=== PATIENT | female | born 1970 | race Caucasian/White ===

== ENCOUNTER 2018-09-07 15:53 | Emergency (ER) | payer BC ==
--- OUTSIDE RECORDS SUMMARY | 2018-09-07 16:01 | XMS REPORT | Continuity of Care Document ---
:1970 External Reference #:[id number] Author Name Sabi Soni Care Team Providers Name Role Phone Kyra Franco MD Primary Care Physician Unavailable Payers Date Identification Numbers Payment Provider Subscriber Policy Number: [id number] [employer] Zeina Marques PayID: [id number] [address] [address] [place] [address] Effective: 2009 Policy Number: [id number] BS Of SHALONDA Marques Expires: 2017 Group Name: [employer] [address] [address] PayID: [id number] [place] [address] Advance Directives Description No Information Available Problems Date Description Provider Status Onset: 07/23/2015 Anxiety Darlene Pettit N.P. Active Family History Date Family Member(s) Observation Comments Father Pe - Related to injury Back Pain with related urinary incontinence Age 65 Mother Obesity Mother Diabetes Mother Atrial Fibrillation Mother Hypertension Age 65 Children 3 1 Son - Depression, Anxiety, ADHD Age 24 1 Daughter - Anxiety Age 22 1 Son - Anxiety, high function autism Age 13 Siblings 2 1 Brother - Healthy Age 40 1 Sister - Bariatric surgery for obesity, Syncope possibly related to seizures, Prior had IFG, ? cardiac issues? 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 as needed for back pain Paroxetine HCL 04/19/20 Active Tablets 20mg 30tab 1 By F41.1 Darlene 18 s Mouth Varn, Every Day N.P. Vitamin C 03/14/20 Active Capsules 500mg 90cap 1 by Darlene 18 s mouth Varn, every day N.P. Magnesium 03/14/20 Active Capsules 500mg twice Darlene 18 daily Varn, N.P. Zyrtec D Allergy 09/25/19 Active Capsules 10mg 30cap take one Darlene 18 s tablet by Varn, mouth in N.P. the evening Alprazolam 09/23/19 Active Tablets 0.25mg 30tab one by F41.1 Darlene 17 s mouth up Varn, to three N.P. times daily as needed for anxiety Imitrex 06/29/19 Active Solution 20mg/Act 6unit 1 R51 Darlene 17 s inhalatio Varn, n in 1 N.P. nostirl, may repeat in 2 hours if needed, as needed miraine headaches . Zofran 07/23/19 Active Tablets 4mg 20tab take 1 R51 Darlene 16 s tablet by Varn, mouth N.P. every 8 hours as needed for nausea Pain Relief Active Tablets 500mg 2 tabs 3 Unknown Extra Strength 00 times daily prn Qnasl Active Aerosol 80mcg/Act Unknown 00 Levocetirizine Active Tablets 5mg Bernardo, Dihydrochloride 00 Geovanny zurita MD Sudafed Active Tablets 30mg Unknown 00 Amoxicillin/Clav 07/13/19 Hx Tablets 875-125mg 20tab 1 by J01.90 Ruthann baker 19 - s mouth MD Blake Potassium 08/12/19 twice a 19 day Amoxicillin/Clav 03/14/20 Hx Tablets 875-125mg 20tab one J01.90 Darlene ulanate 18 - s tablet by Fabi Pettit 03/24/20 mouth N.P. 18 twice daily for 10 days Sertraline HCL 02/19/20 Hx Tablets 100mg 90tab 1 by F41.9 Darlene 18 - s mouth Varn, 04/19/20 every day N.P. 18 Escitalopram 01/08/20 Hx Tablets 20mg 30tab 1 By F32.9 Darlene Oxalate 18 - s Mouth Varn, 02/19/20 Every Day N.P. 18 Amoxicillin/Clav 06/18/20 Hx Tablets 875-125mg 20tab take one J01.90 Marek ulanate 17 - s tablet ANNALISE Cheatham Potassium 06/29/19 q12 hours 18 for 10 days Compazine 06/29/19 Hx Suppositor 25mg 20uni 1 R51 Darlene 17 - y ts supposito Varn, 07/29/19 ry N.P. 17 rectally twice a day as needed Medrol 06/18/20 Hx TBPK 4mg 21uni 6 by Darlene 16 - ts mouth day Varn, 06/24/19 1, 5 by N.P. 17 mouth day 2, 4 by mouth day 3, 3 by mouth day 4, 2 by mouth day 5, 1 by mouth day 6 Augmentin 06/17/20 Hx Tablets 875-125mg 20tab one by J01.90 Darlene 16 - s mouth Varn, 06/27/19 every 12 N.P. 17 hours for ten days Levaquin 05/29/20 Hx Tablets 500mg 10tab 1 by J01.90 Marek 16 - s mouth ANNALISE Cheatham 06/08/20 every day 16 Nasonex 05/29/20 Hx Suspension 50mcg/Act 17gm two Carmen01.90 Marek 16 - sprays ANNALISE Cheatham 06/18/20 each 17 nostril once daily for 2 weeks. Augmentin 01/24/20 Hx Tablets 875-125mg 20tab 1 tablet Marek 16 - s by mouth ANNALISE Cheatham 02/03/20 q12 hours 16 for 10 days Benzonatate 01/22/20 Hx Capsules 100mg 30cap take one J06.9 Marek 16 - s or two ANNALISE Cheatham 01/29/20 capsules 16 every 8 hours as needed for cough. Alprazolam 01/07/20 Hx Tablets 0.25mg 14tab one by F32.9 Darlene 16 - s mouth up Varn, 06/29/19 to three N.P. 17 times daily as needed for anxiety Escitalopram 01/07/20 Hx Tablets 10mg 30tab 1 By F32.9 Darlene Oxalate 16 - s Mouth Varn, 01/08/20 Every Day N.P. 18 Augmentin 10/17/19 Hx Tablets 875-125mg 20tab one by J01.00 Darlene 16 - s mouth Varn, 10/27/19 every 12 N.P. 16 hours for ten days Fluticasone 10/17/19 Hx Suspension 50mcg/Act 16uni 2 sprays J01.00 Darlene Propionate 16 - ts each Varn, 10/31/19 nostril N.P. 16 daily as needed Naratriptan HCL Hx Tablets 2.5mg 14tab as needed Darlene 00 - s headache Varn, 06/29/19 max 2 N.P. 17 days a week Vitamin B 12 Hx Capsule 2 by Unknown 00 - mouth Unknown every day Vitamin D3 Hx Capsules 2000Unit 1 by Unknown 00 - mouth Unknown every day Multi Vit W/B Hx Unknown Complex - 04/19/20 18 Zyrtec-D Allergy Hx Tablets ER 5-120mg 1 by Unknown & Congestion 00 - 12HR mouth 09/25/19 twice a 18 day Prednisone Hx Tablets 10mg TK 3 TS Unknown 00 - PO bid WF 08/12/19 For 5 19 Days Medications Administered in Office Medication Date Status Form Strength Qnty SIG Indications Ordering Provider Celestone 3 mg Administered Injection Elian and 3mg Sona Brennan MD Immunizations CPT Code Status Date Vaccine Lot # [id number] Given 07/23/2015 Tdap - Tetanus/Diptheria/Acellular Pertussis [id number] Vital Signs Date Vital Result Comment 09/02/2018 2:07pm Height 64 inches 5'4" Weight 146.44 lb Heart Rate 70 /min BP Systolic 110 mmHg BP Diastolic 70 mmHg O2 % BldC Oximetry 96 % BMI (Body Mass Index) 25.1 kg/m2 08/12/2018 10:04am Height 64 inches 5'4" Weight 147.00 lb Heart Rate 65 /min BP Systolic 110 mmHg BP Diastolic 69 mmHg Body Temperature 97.9 F O2 % BldC Oximetry 99 % BMI (Body Mass Index) 25.2 kg/m2 07/22/2018 10:12am Height 64 inches 5'4" Weight 147.00 lb Heart Rate 58 /min BP Systolic 129 mmHg BP Diastolic 78 mmHg Body Temperature 98.6 F O2 % BldC Oximetry 97 % BMI (Body Mass Index) 25.2 kg/m2 07/13/2018 11:04am Height 64 inches 5'4" Weight 147.00 lb Heart Rate 71 /min BP Systolic Sitting 115 mmHg BP Diastolic Sitting 71 mmHg Body Temperature 97.1 F O2 % BldC Oximetry 100 % BMI (Body Mass Index) 25.2 kg/m2 07/06/2018 10:09am Height 64 inches 5'4" Weight 138.00 lb Heart Rate 55 /min BP Systolic 113 mmHg BP Diastolic 72 mmHg Body Temperature 98.2 F O2 % BldC Oximetry 98 % BMI (Body Mass Index) 23.7 kg/m2 06/15/2018 11:08am Height 64 inches 5'4" Weight 144.00 lb Heart Rate 67 /min BP Systolic 122 mmHg BP Diastolic 83 mmHg Body Temperature 97.0 F O2 % BldC Oximetry 98 % BMI (Body Mass Index) 24.7 kg/m2 05/25/2018 10:16am Height 64 inches 5'4" Weight 147.00 lb Heart Rate 58 /min BP Systolic 129 mmHg BP Diastolic 81 mmHg Body Temperature 97.9 F O2 % BldC Oximetry 100 % BMI (Body Mass Index) 25.2 kg/m2 05/04/2018 11:14am Height 64 inches 5'4" Weight 149.00 lb Heart Rate 66 /min BP Systolic 129 mmHg BP Diastolic 81 mmHg Body Temperature 98.0 F O2 % BldC Oximetry 96 % BMI (Body Mass Index) 25.6 kg/m2 04/19/2018 10:33am Height 64 inches 5'4" Weight 154.00 lb Heart Rate 64 /min BP Systolic 127 mmHg BP Diastolic 86 mmHg Body Temperature 98.3 F O2 % BldC Oximetry 100 % BMI (Body Mass Index) 26.4 kg/m2 03/28/2018 10:22am Height 64 inches 5'4" Weight 157.00 lb Heart Rate 69 /min BP Systolic 115 mmHg BP Diastolic 72 mmHg Body Temperature 97.9 F O2 % BldC Oximetry 100 % BMI (Body Mass Index) 26.9 kg/m2 03/14/2018 11:37am Height 64 inches 5'4" Weight 153.00 lb Heart Rate 108 /min BP Systolic 130 mmHg BP Diastolic 72 mmHg Body Temperature 98.9 F O2 % BldC Oximetry 96 % BMI (Body Mass Index) 26.3 kg/m2 02/18/2018 11:47am Height 64 inches 5'4" Weight 163.00 lb Heart Rate 65 /min BP Systolic 110 mmHg BP Diastolic 78 mmHg Body Temperature 98.3 F O2 % BldC Oximetry 97 % BMI (Body Mass Index) 28.0 kg/m2 01/07/2018 11:25am Height 64 inches 5'4" Weight 158.00 lb Heart Rate 65 /min BP Systolic 118 mmHg BP Diastolic 80 mmHg Body Temperature 97.4 F O2 % BldC Oximetry 98 % BMI (Body Mass Index) 27.1 kg/m2 11/12/2017 2:17pm Height 64 inches 5'4" Weight 162.00 lb Heart Rate 73 /min Respiratory Rate 14 /min Body Temperature 98.6 F Pain Level 6 BMI (Body Mass Index) 27.8 kg/m2 10/05/2017 1:26pm Height 64 inches 5'4" Weight 162.00 lb Heart Rate 60 /min BP Systolic 122 mmHg BP Diastolic 68 mmHg Respiratory Rate 16 /min Body Temperature 97.1 F Pain Level 7 intermittent BMI (Body Mass Index) 27.8 kg/m2 09/24/2017 10:47am Height 64.25 inches 5'4.25" Weight 165.00 lb Heart Rate 61 /min BP Systolic 114 mmHg BP Diastolic 70 mmHg Body Temperature 98.0 F O2 % BldC Oximetry 98 % BMI (Body Mass Index) 28.1 kg/m2 06/18/2017 11:07am Weight 159.50 lb Heart Rate 70 /min BP Systolic Sitting 118 mmHg BP Diastolic Sitting 80 mmHg Body Temperature 97.9 F O2 % BldC Oximetry 98 % 09/22/2016 1:09pm Height 63.75 inches 5'3.75" Weight 171.25 lb Heart Rate 49 /min Body Temperature 98.3 F Pain Level 5 small migraine and possible UTI O2 % BldC Oximetry 98 % BMI (Body Mass Index) 29.6 kg/m2 06/29/2016 4:19pm Height 64.25 inches 5'4.25" Weight 170.00 lb Heart Rate 56 /min BP Systolic 110 mmHg BP Diastolic 70 mmHg Body Temperature 98.7 F O2 % BldC Oximetry 98 % BMI (Body Mass Index) 29.0 kg/m2 06/17/2016 4:13pm Height 64.25 inches 5'4.25" Weight 173.00 lb Heart Rate 77 /min BP Systolic 100 mmHg BP Diastolic 72 mmHg Body Temperature 99.0 F O2 % BldC Oximetry 98 % BMI (Body Mass Index) 29.5 kg/m2 05/29/2016 10:00am Height 64.25 inches 5'4.25" Weight 174.00 lb Heart Rate 60 /min BP Systolic 120 mmHg BP Diastolic 74 mmHg Body Temperature 98.6 F O2 % BldC Oximetry 98 % BMI (Body Mass Index) 29.6 kg/m2 02/14/2016 3:58pm Weight 174.00 lb Heart Rate 56 /min BP Systolic Sitting 119 mmHg BP Diastolic Sitting 70 mmHg O2 % BldC Oximetry 98 % 01/22/2016 1:59pm Weight 171.75 lb Heart Rate 58 /min BP Systolic Sitting 112 mmHg BP Diastolic Sitting 76 mmHg Body Temperature 97.9 F O2 % BldC Oximetry 98 % 01/07/2016 4:13pm Height 64.25 inches 5'4.25" Weight 175.50 lb Heart Rate 63 /min BP Systolic 117 mmHg BP Diastolic 77 mmHg Body Temperature 99.1 F O2 % BldC Oximetry 98 % BMI (Body Mass Index) 29.9 kg/m2 10/17/2015 11:43am Height 64.25 inches 5'4.25" Weight 176.00 lb Heart Rate 88 /min BP Systolic Sitting 124 mmHg BP Diastolic Sitting 80 mmHg Respiratory Rate 15 /min Body Temperature 98.5 F O2 % BldC Oximetry 98 % BMI (Body Mass Index) 30.0 kg/m2 07/23/2015 10:24am Height 64.25 inches 5'4.25" Weight 177.00 lb Heart Rate 74 /min BP Systolic Sitting 126 mmHg BP Diastolic Sitting 84 mmHg Respiratory Rate 15 /min Body Temperature 98.0 F O2 % BldC Oximetry 98 % BMI (Body Mass Index) 30.1 kg/m2 Results Test Date Facility Test Result H/L Range Note Hepatitis Acute 11/07/201 [facility] Hepatitis A AB Nonreactive Nonreactive Panel [address] [place] [address] [phone] Hepatitis B Core AB Ig[place] Nonreactive Nonreactive Hepatitis B Surface Ag Nonreactive Nonreactive Hepatitis C Antibody 04/27/2018 [facility] HCV Index < 0.[address] [place] [address] [phone] Hepatitis C Antibody Nonreactive Nonreactive Lipid Profile 09/23/2017 [facility] Triglycerides 46 mg/dL 1 (Trig/Chol/HDL) [address] [place] [address] [phone] Cholesterol 186 mg/dL 2 HDL Cholesterol 67.8 mg/dL 3 LDL Cholesterol 109 mg/dL 4 Comp Metabolic Panel 09/23/2017 [facility] Sodium 139 mmol/L N 139-[address] [place] [address] [phone] Potassium 4.6 mmol/L N 3.5-5.0 Chloride 106 mmol/L N 101-111 Co2 Carbon Dioxide 29 mmol/L N 22-32 Anion Gap 4 mmol/L N 2-11 Glucose 90 mg/dL N 70-100 Blood Urea Nitrogen 24 mg/dL N 6-24 Creatinine 0.77 mg/dL N 0.51-0.95 BUN/Creatinine Ratio 31.2 High 8-20 Calcium 9.2 mg/dL N 8.6-10.3 Total Protein 6.1 g/dL Low 6.4-8.9 Albumin 4.0 g/dL N 3.2-5.2 Globulin 2.1 g/dL N 2-4 Albumin/Globulin Ratio 1.9 N 1-3 Total Bilirubin 1.20 mg/dL High 0.2-1.0 Alkaline Phosphatase 34 U/L N 34-104 Alt 15 U/L N 7-52 Ast 19 U/L N 13-39 Egfr Non- 80.4 >60 Egfr 103.3 >60 5 Lipid Profile 09/22/2016 [facility] Triglycerides 60 mg/dL N 6 (Trig/Chol/HDL) [address] [place] [address] [phone] Cholesterol 200 mg/dL N 7 HDL Cholesterol 58.0 mg/dL N 8 LDL Cholesterol 130 mg/dL N 9 Comp Metabolic Panel 09/22/2016 [facility] Sodium 137 mmol/L N 133-[address] [place] [address] [phone] Potassium 4.0 mmol/L N 3.5-5.0 Chloride 105 mmol/L N 101-111 Co2 Carbon Dioxide 27 mmol/L N 22-32 Anion Gap 5 mmol/L N 2-11 Glucose 84 mg/dL N 70-100 Blood Urea Nitrogen 21 mg/dL N 6-24 Creatinine 0.72 mg/dL N 0.51-0.95 BUN/Creatinine Ratio 29.2 High 8-20 Calcium 9.0 mg/dL N 8.6-10.3 Total Protein 6.4 g/dL N 6.4-8.9 Albumin 3.9 g/dL N 3.2-5.2 Globulin 2.5 g/dL N 2-4 Albumin/Globulin Ratio 1.6 N 1-3 Total Bilirubin 0.80 mg/dL N 0.2-1.0 Alkaline Phosphatase 26 U/L Low 34-104 Alt 11 U/L N 7-52 Ast 18 U/L N 13-39 Egfr Non- 87.2 N >60 Egfr 112.1 N >60 10 1 Desirable: <150 Borderline High: 150-199 High: 200-499 Very High: >500 2 Desirable: <200 Borderline High: 200-239 High: >239 3 Low: <40 Desirable: 40-60 High: >60 4 Desirable: <100 Near Optimal: 100-129 Borderline High: 130-159 High: 160-189 Very High: >189 5 Because ethnic data is not always readily available, this report includes an eGFR for both -Americans and non- Americans. The National Kidney Disease Education Program (NKDEP) does not endorse the use of the MDRD equation for patients that are not between the ages of 18 and 70, are , have extremes of body size, muscle mass, or nutritional status, or are non- or non-. According to the National Kidney Foundation, irrespective of diagnosis, the stage of the disease is based on the level of kidney function: Stage Description GFR(mL/min/1.73 m(2)) 1 Kidney damage with normal or decreased GFR 90 2 Kidney damage with mild decrease in GFR 60-89 3 Moderate decrease in GFR 30-59 4 Severe decrease in GFR 15-29 5 Kidney failure <15 (or dialysis) 6 Desirable <150 Borderline high 150-199 High 200-499 Very High >500 7 Desirable <200 Borderline high 200-239 High >239 8 Low <40 Desirable: 40-60 High: >60 9 Desirable: <100 mg/dL Near Optimal: 100-129 mg/dL Borderline High: 130-159 mg/dL High: 160-189 mg/dL Very High: >189 mg/dL 10 Because ethnic data is not always readily available, this report includes an eGFR for both -Americans and non- Americans. The National Kidney Disease Education Program (NKDEP) does not endorse the use of the MDRD equation for patients that are not between the ages of 18 and 70, are , have extremes of body size, muscle mass, or nutritional status, or are non- or non-. According to the National Kidney Foundation, irrespective of diagnosis, the stage of the disease is based on the level of kidney function: Stage Description GFR(mL/min/1.73 m(2)) 1 Kidney damage with normal or decreased GFR 90 2 Kidney damage with mild decrease in GFR 60-89 3 Moderate decrease in GFR 30-59 4 Severe decrease in GFR 15-29 5 Kidney failure <15 (or dialysis) Procedures Date Code Description Status 11/12/2017 Injection, Carpal Tunnel Completed 10/19/2017 78904931 Mammogram Completed 10/16/2016 [id number] Mammogram Completed 10/16/2015 [id number] Mammogram Completed 06/12/2009 60241 Screening Vision Test Completed 06/12/2009 49479 Pure Tone-Air Condition Only Completed 12/20/2008 90615 Screening Vision Test Completed 12/20/2008 74808 Pure Tone-Air Condition Only Completed Encounters Type Date Location Provider Dx Diagnosis Office Visit 08/12/2018 [facility] Darlene Pettit F41.1 Generalized anxiety 10:00a Medicine - N.P. disorder [facility] Office Visit 07/22/2018 [facility] Darlene Pettit F41.1 Generalized anxiety 10:20a Medicine - N.P. disorder [facility] Office Visit 07/13/2018 [facility] Ruthann Lozano MD J01.90 Acute sinusitis, 11:00a Medicine - unspecified [place] Office Visit 07/06/2018 [facility] Darlene Figueroabharath, F41.1 Generalized anxiety 10:00a Medicine - N.P. disorder [place] Office Visit 06/15/2018 [facility] Darlene Wilver, F41.1 Generalized anxiety 11:00a Medicine - N.P. disorder [place] Office Visit 05/25/2018 [facility] Darlene Wilver, F41.1 Generalized anxiety 10:20a Medicine - N.P. disorder [place] Office Visit 05/04/2018 [facility] Darlene Wilver, F41.1 Generalized anxiety 11:00a Medicine - N.P. disorder [place] Office Visit 04/19/2018 [facility] Darlene Wilver, F41.1 Generalized anxiety 10:40a Medicine - N.P. disorder [place] Office Visit 03/28/2018 [facility] Darlene Wilver, F41.1 Generalized anxiety 10:20a Medicine - N.P. disorder [place] Office Visit 03/14/2018 [facility] Darlene Wilver, F41.1 Generalized anxiety 11:40a Medicine - N.P. disorder [place] J01.90 Acute sinusitis, unspecified Office Visit 02/18/2018 11:40a [facility] Darlene Wilver, F41.9 Anxiety disorder, Medicine - N.P. unspecified [place] G47.00 Insomnia, unspecified Office Visit 01/07/2018 11:20a [facility] Darlene Wilver, F41.9 Anxiety disorder, Medicine - N.P. unspecified [place] Office Visit 11/12/2017 2:15p Orthopedic Elian G56.01 Carpal tunnel Services Of MD Anu syndrome, right C.M.A. upper limb G56.03 Carpal tunnel syndrome, bilateral upper limbs Office Visit 10/05/2017 1:15p Orthopedic Elian Brennan G56.03 Carpal tunnel Services Of syndrome, C.M.A. bilateral upper limbs Office Visit 09/24/2017 10:40a [facility] Darlene Petitt, Z00.00 Encntr for Medicine - N.P. 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 intractable, [place] without status migrainosus Office Visit 06/17/2016 4:00p [facility] Darlene Pettit, J01.90 Acute sinusitis, Medicine - N.P. unspecified [place] Office Visit 05/29/2016 10:00a [facility] Marek Cheatham NP J01.90 Acute sinusitis, Medicine - unspecified [place] Office Visit 02/14/2016 4:00p [facility] Darlene Pettit F33.9 Major depressive Medicine - N.P. disorder, [place] recurrent, unspecified Office Visit 01/22/2016 2:00p [facility] Marek Cheatham NP J06.9 Acute upper Medicine - respiratory [place] infection, unspecified Office Visit 01/07/2016 4:00p [facility] Darlene Pettit F33.9 Major depressive Medicine - N.P. disorder, [place] recurrent, unspecified Office Visit 10/17/2015 11:40a [facility] Darlene Pettit J01.00 Acute maxillary Medicine - N.P. sinusitis, [place] unspecified Office Visit 07/23/2015 10:40a [facility] Darlene Pettit Z00.00 Encntr for general Medicine - N.P. adult medical exam [place] w/o abnormal findings G43.909 Migraine, unsp, not intractable, without status migrainosus F41.1 Generalized anxiety disorder E78.0 Pure hypercholesterolemia K58.9 Irritable bowel syndrome without diarrhea Z23 Encounter for immunization Plan of Treatment Future Appointment(s):12/13/2018 11:00 am - Darlene Pettit N.P. at [facility] Internal Medicine - Ewkdzardp19/15/2019 - Darlene Pettit N.P.F41.1 Generalized anxiety disorderComments:For your anxiety:Continue your current management.G44.209 Tension-type headache, unspecified, not intractableNew Medication: Cyclobenzaprine HCL 5 mg - 1 by mouth at bedtime as needed for back painComments :For your muscle tension headaches I have prescribed a muscle relaxant for you, Cyclobenzaprine 5 mg.Take 1 tablet at bedtime. These are very sedating. If you do not find it helpful or you feel to fatigued during the day, please contact the office.Z12.31 Encounter for screening mammogram for malignant neoplasm ofComments:I have ordered your routine screening mammogram. The imaging department will give you your results at the time of your visit.
--- OUTSIDE RECORDS SUMMARY | 2018-09-07 16:02 | XMS REPORT | Continuity of Care Document ---
:1970 External Reference #:[id number] Author Name Jody Valenzuela Care Team Providers Name Role Phone Kyra Franco MD Primary Care Physician Unavailable Payers Date Identification Numbers Payment Provider Subscriber Policy Number: [id number] [employer] Zeina Mraques PayID: [id number] [address] [address] [place] [address] Effective: 2009 Policy Number: [id number] BS Of SHALONDA Marques Expires: 2017 Group Name: ALEKSANDER LIZ [address] [address] PayID: [id number] Advance Directives Description No Information Available Problems Date Description Provider Status Onset: 07/23/2015 Anxiety Darlene Pettit N.Flor. Active Family History Date Family Member(s) Observation [...] Patient has never smoked Smoking Status Reviewed: 08/12/18 Patient has never smoked Exercise Type/Frequency Exercises regularly 5 - 6 days weekly Walking 5 - 7 miles, Weight training Allergies, Adverse Reactions, Alerts Date Description Reaction Status Severity Comments 07/23/2015 Sulfa Antibiotics Active rash Medications Medication Date Status Form Strength Qnty SIG Indications Ordering Provider Paroxetine HCL 04/19/20 Active Tablets 20mg 30tab [...] Darlene ulanate 18 - s tablet by Wilver Potassium 03/24/20 mouth N.P. 18 twice daily for [...] Nasonex 05/29/20 Hx Suspension 50mcg/Act 17gm two J01.90 Marek 16 - sprays ANNALISE Cheatham 06/18/20 [...] 3 mg Administered Injection Elian and 3mg 018 MD Anu Immunizations CPT Code Status Date Vaccine Lot # [id number] Given 07/23/2015 Tdap - Tetanus/Diptheria/Acellular Pertussis [id number] Vital Signs Date Vital Result Comment 08/12/2018 10:04am Height 64 inches 5'4" Weight [...] Test Result H/L Range Note Hepatitis Acute [facility] Hepatitis A AB Nonreactive Nonreactive Panel [address] [address] [phone] Hepatitis B Core AB Igm Nonreactive Nonreactive Hepatitis B Surface Ag Nonreactive Nonreactive Hepatitis C Antibody 04/27/2018 [facility] HCV Index < 0.[address] [place] [address] [phone] Hepatitis C Antibody Nonreactive Nonreactive Lipid Profile 09/23/2017 [facility] Triglycerides 46 mg/dL 1 (Trig/Chol/HDL) [address] [place] [address] [phone] Cholesterol 186 mg/dL 2 HDL Cholesterol 67.8 mg/dL 3 LDL Cholesterol 109 mg/dL 4 Comp Metabolic Panel 09/23/2017 [facility] Sodium 139 mmol/L N 139-145 [address] [place] [address] [phone] Potassium 4.6 mmol/L N 3.5-5.0 Chloride 106 [...] Egfr 103.3 >60 5 Lipid Profile 09/22/2016 [facility] Triglycerides 60 mg/dL N 6 (Trig/Chol/HDL) [address] [place] [address] [phone] Cholesterol 200 mg/dL N 7 HDL Cholesterol 58.0 mg/dL N 8 LDL Cholesterol 130 mg/dL N 9 Comp Metabolic Panel 09/22/2016 [facility] Sodium 137 mmol/L N 133-145 [address] [place] [address] [phone] Potassium 4.0 mmol/L N 3.5-5.0 Chloride 105 [...] dialysis) Procedures Date Code Description Status 11/12/2017 43996 Injection, Carpal Tunnel Completed 10/19/2017 69818630 Mammogram Completed 10/16/2016 [id number] Mammogram Completed 10/16/2015 [id number] Mammogram Completed 06/12/2009 42301 Screening Vision Test Completed 06/12/2009 51551 Pure Tone-Air Condition Only Completed 12/20/2008 19891 Screening Vision Test Completed 12/20/2008 29895 Pure Tone-Air Condition Only Completed Encounters Type Date Location Provider Dx Diagnosis Office Visit 07/22/2018 [facility] Darlene Pettit F41.1 Generalized anxiety 10:20a Medicine - N.P. disorder [place] Office Visit 07/13/2018 [facility] Ruthann Lozano MD J01.90 Acute sinusitis, 11:00a Medicine - unspecified [place] Office Visit 07/06/2018 [facility] Darlene Pettit F41.1 Generalized anxiety 10:00a Medicine - N.P. disorder [place] Office Visit 06/15/2018 [facility] Timo Fenton1.1 Generalized anxiety 11:00a Medicine - N.P. disorder [place] Office Visit 05/25/2018 [facility] Darlene Pettit F41.1 Generalized anxiety 10:20a Medicine - N.P. disorder [place] Office Visit 05/04/2018 [facility] Timo Fenton1.1 Generalized anxiety 11:00a Medicine - N.P. disorder [place] Office Visit 04/19/2018 [facility] Darlene Pettit, F41.1 Generalized anxiety 10:40a Medicine - N.P. disorder [place] Office Visit 03/28/2018 [facility] Darlene Wilver, F41.1 Generalized anxiety 10:20a Medicine - N.P. disorder [place] Office Visit 03/14/2018 [facility] Darlene Pettit, F41.1 Generalized anxiety 11:40a Medicine - N.P. disorder [place] J01.90 Acute sinusitis, unspecified Office Visit 02/18/2018 11:40a [facility] Darlene Pettit, F41.9 Anxiety disorder, Medicine - N.P. unspecified [place] G47.00 Insomnia, unspecified Office Visit 01/07/2018 11:20a [facility] Darlene Pettit, F41.9 Anxiety disorder, Medicine - N.P. unspecified [place] Office Visit 11/12/2017 2:15p Orthopedic Elian G56.01 Carpal tunnel Services Of MD Anu syndrome, right C.M.A. upper limb G56.03 Carpal tunnel syndrome, bilateral upper limbs Office Visit 10/05/2017 1:15p Orthopedic Elian Brennan G56.03 Carpal tunnel Services Of syndrome, C.M.A. bilateral upper limbs Office Visit 09/24/2017 10:40a [facility] Darlene Pettit, Z00.00 Encntr for Medicine - N.P. general adult [place] medical exam w/o abnormal findings Z12.31 Encntr screen mammogram for malignant neoplasm of breast F33.9 Major depressive disorder, recurrent, unspecified K58.9 Irritable bowel syndrome without diarrhea J30.9 Allergic rhinitis, unspecified G43.909 Migraine, unsp, not intractable, without status migrainosus G56.03 Carpal tunnel syndrome, bilateral upper limbs N64.4 Mastodynia Office Visit 06/18/2017 10:40a [facility] Marek Cheatham J01.90 Acute sinusitis, Medicine - JACQUARD [employer]ER unspecified [place] M79.674 Pain in right toe(s) Office Visit 09/22/2016 1:20p [facility] Darlene Pettit, Z00.00 Encntr for Medicine - N.P. 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 intractable, [place] without status migrainosus Office Visit 06/17/2016 4:00p [facility] Darlene Pettit, J01.90 Acute sinusitis, Medicine - N.P. unspecified [place] Office Visit 05/29/2016 10:00a [facility] Marek Cheatham NP J01.90 Acute sinusitis, Medicine - unspecified [place] Office Visit 02/14/2016 4:00p [facility] Darlene Pettit F33.9 Major depressive Medicine - N.P. disorder, [place] recurrent, unspecified Office Visit 01/22/2016 2:00p [facility] Marek Cheatham NP J06.9 Acute upper Medicine - respiratory [place] infection, unspecified Office Visit 01/07/2016 4:00p [facility] Darlene Pettit F33.9 Major depressive Medicine - N.P. disorder, [place] recurrent, unspecified Office Visit 10/17/2015 11:40a [facility] Darlene Pettit, J01.00 Acute maxillary Medicine - N.P. sinusitis, [place] unspecified Office Visit 07/23/2015 10:40a [facility] Darlene Pettit, Z00.00 Encntr for general Medicine - N.P. adult medical exam [place] w/o abnormal findings G43.909 Migraine, unsp, not intractable, without status migrainosus F41.1 Generalized anxiety disorder E78.0 Pure hypercholesterolemia K58.9 Irritable bowel syndrome without diarrhea Z23 Encounter for immunization Plan of Treatment Future Appointment(s):09/02/2018 2:00 pm - Darlene Pettit N.P. at [facility] Medicine - Fpnougmej14/22/2019 - Darlene Pettit N.PRockF41.1 Generalized anxiety disorderComments:For your anxiety:Continue your current management. If at ay time you feel your symptoms are not wellcontrolled, please contact the office.Follow up:F/U 09/02
[2018-09-07 16:12] VITALS: BP 130/74
--- NOTE | 2018-09-07 16:43 | UC ---
Back Pain HPI - HPI Summary HPI Summary: Pt presents with c/o urinary frequency, urgency, and right side flank pain x 3 days. - History of Current Complaint Chief Complaint: UCBackPain Stated Complaint: RT SIDE BACK PAIN Time Seen by Provider: 09/07/18 16:11 Hx Obtained From: Patient Hx Last Menstrual Period: 3yrs ?: No Onset/Duration: Gradual Onset, Lasting Days - 3, Still Present Timing: Constant Severity Initially: Mild Severity Currently: Mild Pain Intensity: 5 Back Pain: Is Discrete @ Character: Dull, Aching Aggravating Factor(s): Movement, Lifting, Bending Alleviating Factor(s): Rest, Position Associated Signs And Symptoms: Positive: Negative Related History: Similar Episode Dx As - kidney stones - Risk Factors AAA Risk Factors: Negative TAD Risk Factors: Negative Cauda Equina Risk Factors: Negative Epidural Abscess Risk Factors: Negative - Allergies/Home Medications Allergies/Adverse Reactions: Allergies Allergy/AdvReac Type Severity Reaction Status Date / Time Sulfa (Sulfonamide Allergy Rash Verified 09/07/18 16:08 Antibiotics) Home Medications: Home Medications ALPRAZolam TAB* [Xanax TAB*] 1 tab TID PRN 09/07/18 [History Confirmed 09/07/18] PARoxetine HCL TAB* [Paxil TAB*] 1 tab DAILY 09/07/18 [History Confirmed ] PMH/Surg Hx/FS Hx/Imm Hx Previously Healthy: Yes Psychological History: Anxiety - Surgical History Surgical History: Yes Surgery Procedure, Year, and Place: PARTIAL HYSTERECTOMY 07/2012; hernia left inguinal 2002 - Family History Known Family History: Positive: Cardiac Disease - Social History Occupation: Employed Full-time Lives: With Family Alcohol Use: Occasionally Substance Use Type: None Smoking Status (MU): Never Smoked Tobacco Have You Smoked in the Last Year: No Review of Systems All Other Systems Reviewed And Are Negative: Yes Constitutional: Positive: Negative Skin: Positive: Negative Eyes: Positive: Negative ENT: Positive: Negative Respiratory: Positive: Negative Cardiovascular: Positive: Negative Gastrointestinal: Positive: Negative Genitourinary: Positive: Dysuria, Frequency, Urgency Motor: Positive: Negative Neurovascular: Positive: Negative Musculoskeletal: Positive: Negative Neurological: Positive: Negative Psychological: Positive: Negative Is Patient Immunocompromised?: No Physical Exam Triage Information Reviewed: Yes Appearance: Well-Appearing Vital Signs: Initial Vital Signs Temp 99 F 09/07/18 16:07 Pulse 63 09/07/18 16:07 Resp 16 09/07/18 16:07 BP 130/74 09/07/18 16:07 Pulse Ox 100 09/07/18 16:07 Vital Signs Reviewed: Yes Eye Exam: Normal ENT Exam: Normal Dental Exam: Normal Neck exam: Normal Respiratory Exam: Normal Cardiovascular Exam: Normal Abdomen Description: Positive: CVA Tenderness (R) Musculoskeletal Exam: Normal Neurological Exam: Normal Psychological Exam: Normal Skin Exam: Normal Back Pain Course/Dx - Differential Dx/Diagnosis Differential Diagnosis/HQI/PQRI: Strain, Other - uti, kidney stone Provider Diagnosis: Dysuria, Right flank pain Discharge - Sign-Out/Discharge Documenting (check all that apply): Patient Departure All imaging exams completed and their final reports reviewed: No Studies - Discharge Plan Condition: Stable Disposition: HOME Prescriptions: Nitrofurantoin Monohyd/M-Cryst [Macrobid 100 mg Capsule] 100 mg PO Q12H #14 cap Patient Education Materials: Dysuria (ED) Referrals: Darlene Pettit NP [Primary Care Provider] - If Needed - Billing Disposition and Condition Condition: STABLE Disposition: Home - Attestation Statements Provider Attestation: Per institutional requirements, I have reviewed the chart, however, I was not consulted specifically or made aware of this patient by the midlevel provider. I did not personally evaluate, interact with , or disposition this patient.
== END 2018-09-07 16:52 | disposition home or self-care (01) ==
LOC: UCCORT 15:53
DX: R30.0 Dysuria (principal); R10.9 Unspecified abdominal pain; R39.15 Urgency of urination; Z88.2 Allergy status to sulfonamides
CPT/HCPCS: 81003; 87077; 87086; 87186; 99212; G0463

== ENCOUNTER 2022-10-27 06:06 | Inpatient (IN) ==
[~2022-10-27 06:06] MED LIST: Buffered Lidocaine 1% SYRIN 1 ml INTRADERM ONE; Lactated Ringers 1000 ml BAG 1,000 ML IV SCH
[2022-10-27] MEDS ORDERED: Rocuronium 50 mg VIAL 10 mg/ml 5 ml VIAL (50 mg) ONE ×2 (06:14→08:04)
[2022-10-27] MEDS ORDERED: Ondansetron 4 mg VIAL 2 MG/ML 2 ml VIAL ONE ×2 (06:15→10:53)
[2022-10-27] MEDS ORDERED: fentaNYL 100 mcg/2 ml 50 MCG/ML VIAL ONE ×2 (06:15→10:30)
[2022-10-27] MEDS ORDERED: Propofol 10 MG/ML 20 ML BTL ONE (06:15)
[2022-10-27] MEDS ORDERED: Midazolam 2 mg/2 ml VIAL 1 mg/ml 2 ml VIAL (2 mg) ONE (06:15)
[2022-10-27] MEDS ORDERED: Dexamethasone IV 4 MG/ML VIAL 1 ml VIAL ONE (06:15)
[2022-10-27] MEDS ORDERED: Heparin 5000 UNITS/ML 1 mL VIAL ONE (06:22)
[2022-10-27] MEDS ORDERED: Scopolamine 1 mg/72hr PATCH ONE (06:22)
[2022-10-27] MEDS ORDERED: ceFAZolin 2 GM in NS PREMIX 0 GM/0 ML BAG IVPB ONE (06:23)
[2022-10-27] MEDS ORDERED: Clindamycin 900 MG/50 **NS BAG 900 MG/50 ML BAG ONE (06:25)
[2022-10-27 06:46] LABS: Rapid COVID-19 Molecular Undetected (Undetected)
[2022-10-27] MEDS ORDERED: Bupivacaine 0.25% EPI 200,000 30 ML SDV ONE (06:56)
[2022-10-27] MEDS ORDERED: Methylene Blue 0.5 % 50 MG/10 ML AMP IV ONE (06:56)
[2022-10-27] MEDS ORDERED: Acetaminophen IV 1 GM/100ML 1,000 MG/100 ML BAG IV ONE (07:50)
[2022-10-27] MEDS ORDERED: Ketamine HCL 50 mg/ml 10 ml VIAL (500 MG) ONE (07:58)
[2022-10-27] MEDS ORDERED: Ondansetron 4 mg VIAL 2 MG/ML 2 ml VIAL IV PRN (10:12)
[2022-10-27] MEDS ORDERED: HYDROmorphone 0.5 MG/0.5 ML SYRINGE IV SLOW PU PRN (10:12)
[2022-10-27] MEDS ORDERED: HYDROmorphone 1 MG/1 ML SYRINGE IV SLOW PU PRN (10:12)
[2022-10-27] MEDS ORDERED: Prochlorperazine 5 mg/ml 2 ml VIAL (10 mg) ONE (10:21)
[2022-10-27] MEDS: Lactated Ringers 1000 ml BAG 1,000 ML IV SCH ×2 (13:02→20:20)
[2022-10-27] MEDS: Fluticasone NASAL SPRAY 50MCG 16 gm SPRAY BTL INTRANASAL SCH ×2 (14:16→23:12)
[2022-10-27] MEDS: Heparin 5000 UNITS/ML 1 mL VIAL SUBCUT SCH ×2 (15:07→23:12)
[2022-10-27] MEDS: Acetaminophen IV 1 GM/100ML 1,000 MG/100 ML BAG IV SCH ×2 (15:07→20:07)
[2022-10-28] MEDS: Acetaminophen IV 1 GM/100ML 1,000 MG/100 ML BAG IV SCH ×2 (02:56→08:31)
[2022-10-28] MEDS: Lactated Ringers 1000 ml BAG 1,000 ML IV SCH ×2 (02:58→03:01)
[2022-10-28] MEDS: Heparin 5000 UNITS/ML 1 mL VIAL SUBCUT SCH (06:41)
[2022-10-28] MEDS: Fluticasone NASAL SPRAY 50MCG 16 gm SPRAY BTL INTRANASAL SCH (08:30)
[2022-10-28] MEDS ORDERED: Pantoprazole VIAL 40 MG VIAL IV SCH (09:00)
[2022-10-28 10:34] VITALS: BP 129/75
[2022-10-28] MEDS ORDERED: D5W 1/2 NS KCl 20 meq 1000 ml 1,000 ML IV SCH (11:00)
== END 2022-10-28 14:07 | disposition home or self-care (01) | DRG 403 ==
LOC: AA 06:06 → SSU 10:12
PROVIDERS: ADMIT Surgery; ATTEND Surgery